=== PATIENT | female | born 1975 | race Two or more races ===

== ENCOUNTER 2018-04-25 17:59 | Emergency (ER) | payer BC ==
[2018-04-25 18:16] VITALS: BP 122/78
--- NOTE | 2018-04-25 18:30 | UC ---
Back Pain HPI - HPI Summary HPI Summary: 43 y/o female presents to the urgent care accompany by c/o lower back pain radiating to the RT leg since yesterday. pt reports she had a similar episode about 2 years ago and was Dx as sciatic pain for which she takes sometimes Tramadol PO. However yesterday she started to feet mild pain on Rt side of lower back. Today at work she tried she was placing some sheets over a top shelf which exacerbated her pain. Pain became severe on both sides. She took Ibuprofen PO at 12N to alleviate symptoms. Now is it painful to walk, and sit. Pain is sharp 9/10. she just took a Tramadol PO about 1 hrs ago w/o any improvement. Pt denies numbness or tingling sensation over lower legs, saddle anesthesia, urinary or fecal incontinence, urinary symptoms, flank pain, SOB, chest pain, abdominal pain, N/V/D, vaginal discharge. Pt states Flexeril and other muscle relaxant which she can't recall the name gives her a rash. LMP: w/ B/L tubal ligation. - History of Current Complaint Chief Complaint: UCBackPain Stated Complaint: BACK PAIN Time Seen by Provider: 04/25/18 18:15 Hx Obtained From: Patient Onset/Duration: Sudden Onset, Lasting Days - 1 day, Still Present, Worse Since - today Timing: Constant Severity Initially: Mild Severity Currently: Moderate Pain Intensity: 9 Pain Scale Used: 0-10 Numeric Back Pain: Is Discrete @ - lower back, Radiates To - left leg - Allergies/Home Medications Allergies/Adverse Reactions: Allergies Allergy/AdvReac Type Severity Reaction Status Date / Time cyclobenzaprine Allergy Unknown Verified 04/25/18 18:16 [From Flexeril] Reaction Details MUSCLE RELAXER Allergy Unknown Uncoded 04/25/18 18:16 Reaction Details PMH/Surg Hx/FS Hx/Imm Hx Previously Healthy: Yes Other Neurological History: Sciatica - Surgical History Surgical History: Yes Surgery Procedure, Year, and Place: RIGHT KNEE SURGERY - Family History Known Family History: Positive: Cardiac Disease - Social History Occupation: Employed Full-time Lives: With Family Alcohol Use: None Substance Use Type: None Smoking Status (MU): Never Smoked Tobacco Review of Systems Constitutional: Negative Skin: Negative Eyes: Negative ENT: Negative Respiratory: Negative Cardiovascular: Negative Gastrointestinal: Negative Genitourinary: Negative Motor: Negative Neurovascular: Negative Musculoskeletal: Decreased ROM - lower back, Other: - lower back pain s/p heaby lifiting Neurological: Negative Psychological: Negative Is Patient Immunocompromised?: No All Other Systems Reviewed And Are Negative: Yes Physical Exam - Summary Physical Exam Summary: Vital Signs Reviewed: Yes Appearance: Well-Appearing, Well-Nourished, female laying in the examining table w/ pain distress distress. Eyes: Positive: Conjunctiva Clear - PERRLA, EOMI. ENT: Positive: Normal ENT inspection, Hearing grossly normal, Pharynx normal, TMs normal, Uvula midline Neck: Positive: Supple, Nontender, No Lymphadenopathy Respiratory: Positive: Chest non-tender, Lungs clear, Normal breath sounds, No respiratory distress Cardiovascular: Positive: RRR, No Murmur, Pulses Normal, Brisk Capillary Refill Abdomen Description: Positive: Nontender, No Organomegaly, Soft. Negative: CVA Tenderness (R), CVA Tenderness (L) Bowel Sounds: Positive: Present Musculoskeletal: Positive: Strength Intact, BACK: Patient walked into the urgent care room with symmetric ambulation but very slow due to pain, No signs of limping, antalgic, able to bear weight. No signs of trauma, No masses palpated. Point tenderness at the level of L3-S1, No CVAT, no flank ecchymosis . No sacroiliac notch tenderness, No saddle anesthesia.ROM: limited due to pain , Straight Leg Raise: negative. Patellar reflexes: brisk, symmetric Muscle strength lower extremities. Dorsiflexion/ plantar flexion of ankles. Heel/ toe walk. Lower extremities: Femoral, popliteal, posterior tibial, and dorsalis pedis pulses WNL. Pt refuse rectal exam Neurological: Positive: Alert, Muscle Tone Normal Psychological Exam: Normal Skin Exam: Normal Triage Information Reviewed: Yes Vital Signs: Initial Vital Signs Temp 97.7 F 04/25/18 18:11 Pulse 67 04/25/18 18:11 Resp 18 04/25/18 18:11 BP 122/78 04/25/18 18:11 Pulse Ox 100 04/25/18 18:11 Back Pain Course/Dx - Course Course Of Treatment: 43 y/o female presents to the urgent care accompany by c/o lower back pain radiating to the RT leg since yesterday. pt reports she had a similar episode about 2 years ago and was Dx as sciatic pain for which she takes sometimes Tramadol PO. However yesterday she started to feet mild pain on Rt side of lower back. Today at work she tried she was placing some sheets over a top shelf which exacerbated her pain. Pain became severe on both sides. She took Ibuprofen PO at 12N to alleviate symptoms. Now is it painful to walk, and sit. Pain is sharp 9/10. she just took a Tramadol PO about 1 hrs ago w/o any improvement. Pt denies numbness or tingling sensation over lower legs, saddle anesthesia, urinary or fecal incontinence, urinary symptoms, flank pain, SOB, chest pain, abdominal pain, N/V/D, vaginal discharge. Pt states Flexeril and other muscle relaxant which she can't recall the name gives her a rash. LMP:04/23/2018 w/ B/L tubal ligation. Hx obtained. PE: Point tenderness at the level of the L3-S1 and B/L paraspinal muscle spasm at the same level on examination. Lumbosacral X-ray ordered, Impression: No acute osseous injury observed as per Dr Yeager. Final Radiology reading will be tomorrow. Pt will be notified.Pt's symptoms discussed w/ DR Yeager and he recommended to give Toradol IM inj. Pt given a Toradol IM inj by nurse and Decadrom IM inj to alleviate symptoms. Pt tolerated well IN inj and pain decrease.. Pt Rx Medrol dose kevin and Ibuprofen PO prn and given a PT referral. Patient was instructed to the f/u alexandro orthopedic Dr from [facility] in 1 week if symptoms do not improve or worsen. Patient understands and agrees. Patient is able to ambulate freely w/o aid or limp. Plan of care was discussed with the patient and patient understands and agrees. All questions were answered at patient satisfaction. Pt left clinic hemodynamically stable and stating feeling better. - Differential Dx/Diagnosis Differential Diagnosis/HQI/PQRI: Herniated Disc, Renal Colic, Strain, Sprain Provider Diagnoses: 1- Acute lower back strain. 2- Back muscle spasm - Physician Notifications Discussed Care With: Orlando Yeager - DR Yeager agreed w/ Pt's pllan of care. Discharge - Sign-Out/Discharge Documenting (check all that apply): Patient Departure - D/C home All imaging exams completed and their final reports reviewed: No - Discharge Plan Condition: Stable Disposition: HOME Prescriptions: HYDROcodone/ACETAMIN 5-325 MG* [[place] 5-325 TAB*] 1 tab PO Q6H PRN #12 tab MDD 1g/4h-4g/day PRN Reason: Pain methylPREDNISolone [Medrol Dosepak 4 MG*] 4 mg PO .SEE KEVIN INSTRUCTION #1 kevin Patient Education Materials: Sciatica (ED), Low Back Strain (ED) Forms: *Work Release Referrals: [facility] [Provider Group] Armando Rowan MD [Primary Care Provider] - 3 Days Homero Harden DO [Doctor of Osteopathy] - 3 Days Additional Instructions: 1- Please take [place] PO as directed after meals for pain. Avoid driving while taking the medication. 2- Take Medrol dose kevin as directed to alleviate muscle spasm. 3- Wear a back support. Avoid strenuous exercise of heavy lifting. 4- Please follow up with Orthopedic Dr from [facility] or DR Harden in 2- 3 days if not improvement of symptoms, for further management. - Billing Disposition and Condition Condition: STABLE Disposition: Home
[2018-04-25] MEDS ORDERED: Ketorolac INJ* 30 MG/ML 1 ML VIAL IM ONE (18:53)
[2018-04-25] MEDS ORDERED: Dexamethasone IV* 4 MG/ML 1 ML (4 MG) IM ONE (18:58)
--- NOTE | 2018-04-26 08:13 | RAD ---
Indication: Low back pain. 5 views of lumbar spine are reviewed. Vertebral bodies appear normal in height. There may be some minimal disc space narrowing at L1-L2. No fracture is noted. Intervertebral foramen appear patent. IMPRESSION: Minimal degenerative disc disease at L1-L2. R0
== END 2018-04-25 19:57 | disposition home or self-care (01) ==
LOC: UCCORT 17:59
DX: S39.012A Strain of muscle, fascia and tendon of lower back, initial encounter (principal); X58.XXXA Exposure to other specified factors, initial encounter; Y92.9 Unspecified place or not applicable; M62.830 Muscle spasm of back; Z88.8 Allergy status to other drugs, medicaments and biological substances
CPT/HCPCS: 72110; 96372; 99212; G0463; J1100; J1885

== ENCOUNTER 2018-08-13 18:22 | Emergency (ER) | payer BC ==
[2018-08-13 18:45] VITALS: BP 114/73
[2018-08-13 18:51] LABS: Influenza A Molecular POSITIVE (Negative)
--- NOTE | 2018-08-13 19:06 | UC ---
FLU HPI - HPI Summary HPI Summary: C/O fevers/ chills/ body aches/ cough and headache for 4 days. Worsened 3 days ago. - History of Current Complaint Stated Complaint: BODY ACHES,COUGH,CONGESTION Hx Obtained From: Patient Hx Last Menstrual Period: 07/12/18 ?: No Onset/Duration: Sudden Onset, Lasting Days - 4, Worse Since - 3 days ago Severity Currently: Moderate Severity Initially: Moderate Pain Intensity: 6 Associated Signs & Symptoms: Positive: Fever, Myalgia, Cough, Sore Throat Related Hx: Possible Flu/Infectious Exposure - Allergy/Home Medications Allergies/Adverse Reactions: Allergies Allergy/AdvReac Type Severity Reaction Status Date / Time cyclobenzaprine Allergy Unknown Verified 08/13/18 18:47 [From Flexeril] Reaction Details MUSCLE RELAXER Allergy Unknown Uncoded 08/13/18 18:47 Reaction Details Home Medications: Home Medications Ibuprofen TAB* [Motrin TAB* 800 MG] 800 mg PO BID PRN 08/13/18 [History Confirmed 08/13/18] PMH/Surg Hx/FS Hx/Imm Hx Previously Healthy: Yes - Surgical History Surgical History: Yes Surgery Procedure, Year, and Place: RIGHT KNEE SURGERY - Family History Known Family History: Positive: Cardiac Disease Negative: Hypertension - Social History Occupation: Employed Full-time Lives: With Family Alcohol Use: Occasionally Substance Use Type: None Smoking Status (MU): Never Smoked Tobacco Review of Systems All Other Systems Reviewed And Are Negative: Yes Constitutional: Positive: Fever, Chills, Fatigue ENT: Positive: Sore Throat Respiratory: Positive: Cough Cardiovascular: Positive: Chest Pain Musculoskeletal: Positive: Myalgia Neurological: Positive: Headache Is Patient Immunocompromised?: No Physical Exam Triage Information Reviewed: Yes Appearance: No Pain Distress, Well-Nourished, Ill-Appearing Vital Signs: Initial Vital Signs Temp 100 F 08/13/18 18:34 Pulse 109 08/13/18 18:34 Resp 24 08/13/18 18:34 BP 114/73 08/13/18 18:34 Pulse Ox 100 08/13/18 18:34 Vital Signs Reviewed: Yes Eyes: Positive: Conjunctiva Inflamed ENT: Positive: Pharynx normal, TMs normal Neck exam: Normal Respiratory: Positive: Wheezing - expiratory wheezing with coughing with deep breaths Cardiovascular: Positive: No Murmur, Tachycardia Musculoskeletal Exam: Normal Neurological Exam: Normal Psychological Exam: Normal Skin Exam: Normal Flu Course/Dx - Differential Dx/Diagnosis Differential Diagnosis/HQI/PQRI: Influenza, Pneumonia, Upper Respiratory Infection Provider Diagnosis: Influenza A, Bronchospasm, acute Discharge - Sign-Out/Discharge Documenting (check all that apply): Patient Departure All imaging exams completed and their final reports reviewed: No Studies - Discharge Plan Condition: Stable Disposition: HOME Prescriptions: predniSONE TAB* [Deltasone 20 MG TAB*] 60 mg PO DAILY #18 tab Patient Education Materials: Influenza (ED), Bronchospasm (ED), Prednisone (By mouth) Forms: *Work Release Referrals: Armando Rowan MD [Primary Care Provider] - - Billing Disposition and Condition Condition: STABLE Disposition: Home
[2018-08-13] MEDS ORDERED: Albuterol HFA INHALER* 8 gm MDI INH ONE (19:07)
[2018-08-13] MEDS ORDERED: predniSONE TAB* 20 MG PO ONE (19:07)
== END 2018-08-13 19:25 | disposition home or self-care (01) ==
LOC: UCCORT 18:22
DX: J10.1 Influenza due to other identified influenza virus with other respiratory manifestations (principal); J98.01 Acute bronchospasm; Z88.8 Allergy status to other drugs, medicaments and biological substances
CPT/HCPCS: 99213; A9270-GY; G0463; J7512

== ENCOUNTER → 2018-10-05 14:41 | Emergency (ER) | payer BC | END | disposition home or self-care (01) | LOC: IMGCORT 14:41 | DX: M54.12 Radiculopathy, cervical region (principal) | CPT/HCPCS: 72141 ==